=== PATIENT | male | born 1940 | race Caucasian/White ===

== ENCOUNTER → 2016-10-24 | Outpatient (CLI) | payer OTHER ==
[~2016-10-24] MED LIST: ACTOS30 MG PO; ADULT LOW DOSE81 M1 PO; ADVIL200 MG PO; ALBUTEROL SULF8.5 GM IH; ASCORBIC ACID500 M3 PO; ASPIR-LOW81 M1; ASPIR-LOW81 MG PO; ASPIRIN E.C.81 M1 PO; ATORVASTATIN CA40 MG PO; Ascorbic Acid,Ester- PO; Aspirin E.C. PO; BACTRIM,SEPT1 TABLET PO; C-10001000 MG PO; CALCIO DEL MAR500 MG; CARVEDILOL25 MG; CARVEDILOL25 MG PO; CENTRUM SILVER1 EAC3 PO; CEPHALEXIN500 MG PO; CHEMO MEDS; CILOSTAZOL50 MG PO; CLEOCIN300 MG PO; COLACE100 MG PO; COREG12.5 MG PO; COREG25 M1 PO; Cipro PO; DESYREL100 MG PO; DILAUDID2 MG PO; DRONABINOL2.5 MG PO; Deltasone PO; Desyrel PO; EFFEXOR XR150 MG; EFFEXOR XR150 MG PO; ENDOCET 5-3251 EACH PO; ESTER-C 1,0001 EACH PO; Effexor XR PO; FENOFIBRATE145 M1 PO; FEOSOL325 MG PO; FLOMAX0.4 MG PO; FLOVENT DISKUS1 DIS1 IH; FOLIC ACID1 MG PO; FOLVITE1 MG PO; GABAPENTIN300 MG PO; GEMFIBROZIL600 MG; GLUCOPHAGE1000 MG PO; GOLYTELY SOLU4000 ML PO; HYDROCODON-ACE1 EAC7 PO; HYDROCODON-ACE1 EACH PO; HYDROMORPHONE HC4 MG PO; IRON325 MG PO; JANUVIA100 MG; JANUVIA100 MG PO; K-DUR20 MEQ PO; KLOR-CON20 MEQ PO; LASIX40 MG PO; LIPITOR40 MG PO; LISINOPRIL10 MG PO; LISINOPRIL20 MG PO; LISINOPRIL5 MG PO; LOW DOSE ASPIRI81 M1 PO; LOW DOSE ASPIRI81 M2 PO; Lopid PO; MAGOX 400400 MG PO; METOPROLOL SUCC25 MG PO; Maalox, Mylanta PO; Mag-Ox PO; NEURONTIN300 MG PO; NITROSTAT0.4 MG SL; NORCO 5/3251 TABLET PO; Neurontin PO; Nitrostat,NitroQuick SL; OMEPRAZOLE40 M1 PO; Oyst-Cal D, Oscal W/ PO; PEPTO BISMOL240 ML PO; PERCOCET 5/31 TABLET PO; PLETAL50 MG PO; POTASSIUM CHLO20 ME1 PO; PREDNISONE5 MG PO; PRILOSEC40 MG PO; PROAIR HFA8.5 GM IH; PROTONIX40 MG PO; PROVENTIL HFA6.7 GM IH; Percocet 5/325,Endoc PO; Pletal PO; Protonix PO; QUESTRAN PACKET4 GM PO; QUESTRAN4 GM/PACKE PO; SINGULAIR10 MG; SINGULAIR10 MG PO; SPIRIVA1 INHALATI IH; ST. JOSEPH ASPI81 MG PO; SYMBICORT60 INHALA1 IH; SYMBICORT60 INHALAT IH; Santyl TP; THERAGRAN1 TABLET PO; TOPROL XL25 MG PO; TRAZODONE HCL50 MG PO; TRICOR145 MG PO; Theragran PO; Tricor PO; Tylenol Regular Stre PO; VENLAFAXINE HC150 M1 PO; VICODIN,LORT1 TABLET PO; VITAMIN D1000 UNIT PO; VYTORIN 10/81 TABLET PO; Vancomycin IV; Vytorin 10/80 PO; ZESTRIL20 MG PO
== END | disposition home or self-care (01) ==
LOC: OPR 07:44 → EDSTATUS 09:00 → OPR 09:00
PROC: 0FB03ZX Excision of Liver, Percutaneous Approach, Diagnostic (ICD-10-PCS; principal; 2016-10-24)
DX: R16.0 Hepatomegaly, not elsewhere classified (principal)
CPT/HCPCS: 77012; 88305; J3010

== ENCOUNTER 2016-11-23 07:52 | Day surgery (SDC) | payer OTHER ==
[~2016-11-23] VITALS: Ht 177.8 cm; Wt 52.2 kg
[2016-11-23 09:14] VITALS: BP 156/56
[2016-11-23 12:30] VITALS: BP 125/52
[2016-11-23 13:30] VITALS: BP 133/68
== END 2016-11-23 14:00 | disposition home or self-care (01) ==
LOC: SDC 07:52
PROC: 0TB68ZX Excision of Right Ureter, Via Natural or Artificial Opening Endoscopic, Diagnostic (ICD-10-PCS; principal; 2016-11-23)
PROC: 0TF68ZZ Fragmentation in Right Ureter, Via Natural or Artificial Opening Endoscopic (ICD-10-PCS; principal; 2016-11-23)
DX: N20.1 Calculus of ureter (principal); N13.39 Other hydronephrosis; C66.1 Malignant neoplasm of right ureter; J45.909 Unspecified asthma, uncomplicated; I10 Essential (primary) hypertension; Z79.82 Long term (current) use of aspirin; Z87.891 Personal history of nicotine dependence
CPT/HCPCS: 74420; 88305; 93005; C1876; J0690; J1580; J2020; J2405; J3010

== ENCOUNTER 2017-02-21 15:33 | Emergency (ER) | payer OTHER ==
[~2017-02-21] VITALS: Ht 177.8 cm; Wt 50.9 kg
[2017-02-21 16:24] LABS: EOSINOPHIL COUNT 0.1 K/uL (0-0.3); HEMATOCRIT 25.2 % (38.0-50.0); IMMATURE GRANULOCYTE (%) 0.5 % (0.0-0.7); INSTRUMENT ABS NEUTROPHIL CT 2.3 K/uL; LYMPHOCYTE COUNT 0.8 K/uL (1.0-2.8); MCH 33.3 PG (29.0-34.0); MCHC 33.3 G/DL (30.0-36.0); MEAN PLAT.VOLUME 9.8 uM^3 (9.0-12.4); MONOCYTE (%) 9.8 % (3-12); MONOCYTE COUNT 0.4 K/uL (0-0.8); NEUTROPHIL (%) 63.5 % (45-76); NEUTROPHIL COUNT 2.3 K/uL (1.8-6.4); PLATELET COUNT 89 K/uL (156-360); RBC DIS.WIDTH-CV 13.7 % (11.8-14.6); RBC DIS.WIDTH-SD 50.6 % (39-53); RED BLOOD COUNT 2.52 M/uL (4.00-5.50); WHITE BLOOD COUNT 3.7 K/uL (4.1-10.2)
[2017-02-21 16:33] LABS: CHLORIDE 113 mEq/L (99-109); POTASSIUM 4.2 mEq/L (3.7-5.4); SODIUM 141 mEq/L (136-147)
[2017-02-21 16:35] LABS: GLUCOSE 112 mg/dL (70-99)
[2017-02-21 16:37] LABS: ANION GAP 6 MEQ/L (2-14)
[2017-02-21 16:39] LABS: GFR ESTIMATE (CALCULATED) 52 mL/min/
[2017-02-21 16:40] LABS: UREA NITROGEN (BUN) 24 mg/dL (9-23)
[2017-02-21 17:39] LABS: ADD MIUA? YES; BILIRUBIN NEGATIVE; BLOOD SMALL; COLOR YELLOW ((YELLOW)); GLUCOSE (STRIP) NEGATIVE; KETONES NEGATIVE; LEUKOCYTES NEGATIVE; NITRITE NEGATIVE; PROTEIN (STRIP) NEGATIVE; SPECIFIC GRAVITY 1.015 (1.000-1.030); UROBILINOGEN 0.2 MG/DL (0.2-1.0)
[2017-02-21 17:44] LABS: BACTERIA RARE /HPF; EPITHELIAL CELLS NONE SEEN /HPF; HYALINE CASTS 0-5 /LPF; MUCUS TRACE /LPF
[2017-02-21] MEDS ORDERED: ULTRAM50 MG PO (18:50)
[2017-02-21 19:02] VITALS: BP 160/68
== END 2017-02-21 19:08 | disposition home or self-care (01) ==
LOC: EME 15:33
PROVIDERS: Physician Assistant
DX: S40.011A Contusion of right shoulder, initial encounter (principal); S00.93XA Contusion of unspecified part of head, initial encounter; W18.30XA Fall on same level, unspecified, initial encounter; Y92.000 Kitchen of unspecified non-institutional (private) residence as the place of occurrence of the external cause; J45.909 Unspecified asthma, uncomplicated; J44.9 Chronic obstructive pulmonary disease, unspecified; E11.9 Type 2 diabetes mellitus without complications; I10 Essential (primary) hypertension; Z85.828 Personal history of other malignant neoplasm of skin; Z85.038 Personal history of other malignant neoplasm of large intestine; Z79.82 Long term (current) use of aspirin; Z87.891 Personal history of nicotine dependence
CPT/HCPCS: 70450; 73030; 80048; 81003; 85025; 99281; 99284

== ENCOUNTER 2017-04-02 08:51 | Outpatient (CLI) | payer OTHER ==
[~2017-04-02] VITALS: Ht 177.8 cm; Wt 50.1 kg
[~2017-04-02 08:51] MED LIST changes: +MULTI-DAY VITA1 EACH PO; +PROAIR RESPICL90 MCG IH; +ULTRAM50 MG PO
[2017-04-02 09:56] LABS: INTER. NORMALIZED RATIO 1.3; PROTHROMBIN TIME 13.6 (9.2-11.2); PTT 29.6 (25-32)
[2017-04-02 15:45] LABS: HEMATOCRIT 24.6 % (38.0-50.0); MCH 33.5 PG (29.0-34.0); MCHC 34.1 G/DL (30.0-36.0); MEAN PLAT.VOLUME 10.6 uM^3 (9.0-12.4); PLATELET COUNT 77 K/uL (156-360); RBC DIS.WIDTH-CV 13.7 % (11.8-14.6); RBC DIS.WIDTH-SD 49.1 % (39-53); RED BLOOD COUNT 2.51 M/uL (4.00-5.50); WHITE BLOOD COUNT 6.6 K/uL (4.1-10.2)
[2017-04-02 19:03] VITALS: BP 125/55
[2017-04-02 19:44] LABS: HEMATOCRIT 22.8 % (38.0-50.0); MCH 33.2 PG (29.0-34.0); MCHC 34.2 G/DL (30.0-36.0); MEAN PLAT.VOLUME 10.6 uM^3 (9.0-12.4); PLATELET COUNT 82 K/uL (156-360); RBC DIS.WIDTH-CV 13.6 % (11.8-14.6); RBC DIS.WIDTH-SD 48.6 % (39-53); RED BLOOD COUNT 2.35 M/uL (4.00-5.50); WHITE BLOOD COUNT 5.7 K/uL (4.1-10.2)
[2017-04-02 23:30] VITALS: BP 106/54
[2017-04-03 00:48] LABS: HEMATOCRIT 21.9 % (38.0-50.0); MCH 32.4 PG (29.0-34.0); MCHC 33.3 G/DL (30.0-36.0); MCV 97.3 FL (86-99); MEAN PLAT.VOLUME 10.5 uM^3 (9.0-12.4); PLATELET COUNT 78 K/uL (156-360); RBC DIS.WIDTH-CV 13.8 % (11.8-14.6); RBC DIS.WIDTH-SD 49.1 % (39-53); RED BLOOD COUNT 2.25 M/uL (4.00-5.50); WHITE BLOOD COUNT 7.3 K/uL (4.1-10.2)
[2017-04-03 01:23] VITALS: BP 130/59
[2017-04-03 05:11] VITALS: BP 115/56
[2017-04-03 05:27] LABS: HEMATOCRIT 21.9 % (38.0-50.0); MCV 97.8 FL (86-99)
[2017-04-03 08:20] VITALS: BP 121/60
[2017-04-03 12:44] LABS: HEMATOCRIT 22.2 % (38.0-50.0); MCH 33.5 PG (29.0-34.0); MCHC 34.2 G/DL (30.0-36.0); MCV 97.8 FL (86-99); MEAN PLAT.VOLUME 10.8 uM^3 (9.0-12.4); PLATELET COUNT 91 K/uL (156-360); RBC DIS.WIDTH-CV 13.9 % (11.8-14.6); RBC DIS.WIDTH-SD 49.1 % (39-53); RED BLOOD COUNT 2.27 M/uL (4.00-5.50); WHITE BLOOD COUNT 8.1 K/uL (4.1-10.2)
[2017-04-03 13:01] VITALS: BP 127/58
[2017-04-03 16:20] VITALS: BP 136/60
== END 2017-04-03 16:19 | disposition home or self-care (01) ==
LOC: OPR 08:51 → EDSTATUS 10:00 → OPR 10:00 → 2SOUTH 16:44 → 4EAST 16:44
PROVIDERS: Internal Medicine; Physician Assistant Surgical; Radiology Diagnostic Radiology; Surgery
DX: C78.7 Secondary malignant neoplasm of liver and intrahepatic bile duct (principal); C66.9 Malignant neoplasm of unspecified ureter; C78.02 Secondary malignant neoplasm of left lung; Y83.9 Surgical procedure, unspecified as the cause of abnormal reaction of the patient, or of later complication, without mention of misadventure at the time of the procedure; K91.840 Postprocedural hemorrhage of a digestive system organ or structure following a digestive system procedure; K66.1 Hemoperitoneum; J44.9 Chronic obstructive pulmonary disease, unspecified; I12.9 Hypertensive chronic kidney disease with stage 1 through stage 4 chronic kidney disease, or unspecified chronic kidney disease; N18.9 Chronic kidney disease, unspecified; E11.40 Type 2 diabetes mellitus with diabetic neuropathy, unspecified; D50.0 Iron deficiency anemia secondary to blood loss (chronic); I73.9 Peripheral vascular disease, unspecified; E11.22 Type 2 diabetes mellitus with diabetic chronic kidney disease; I70.90 Unspecified atherosclerosis; I42.0 Dilated cardiomyopathy; Z87.891 Personal history of nicotine dependence; Z79.82 Long term (current) use of aspirin; Z85.028 Personal history of other malignant neoplasm of stomach; Z85.038 Personal history of other malignant neoplasm of large intestine
CPT/HCPCS: 74176; 77012; 85014; 85018; 85027; 85610; 85730; 86900; 86901; 86920; 88305; 88341 TC; 88342 TC; 94640 76; 99202; G0378; J3010; J7120

== ENCOUNTER 2017-06-12 12:53 | Observation (INO) | payer OTHER ==
[~2017-06-12] VITALS: Ht 177.8 cm; Wt 42.3 kg
[~2017-06-12 12:53] MED LIST changes: -PROAIR RESPICL90 MCG IH
[2017-06-12 14:47] LABS: EOSINOPHIL (%) 0.7 % (0-5); HEMATOCRIT 28.1 % (38.0-50.0); IMMATURE GRANULOCYTE (%) 0.2 % (0.0-0.7); INSTRUMENT ABS NEUTROPHIL CT 4.4 K/uL; LYMPHOCYTE COUNT 0.6 K/uL (1.0-2.8); MCH 32.1 PG (29.0-34.0); MCHC 33.8 G/DL (30.0-36.0); MCV 94.9 FL (86-99); MEAN PLAT.VOLUME 10.6 uM^3 (9.0-12.4); MONOCYTE (%) 10.4 % (3-12); MONOCYTE COUNT 0.6 K/uL (0-0.8); NEUTROPHIL (%) 78.3 % (45-76); NEUTROPHIL COUNT 4.4 K/uL (1.8-6.4); PLATELET COUNT 96 K/uL (156-360); RBC DIS.WIDTH-CV 16.3 % (11.8-14.6); RBC DIS.WIDTH-SD 57.8 % (39-53); RED BLOOD COUNT 2.96 M/uL (4.00-5.50); WHITE BLOOD COUNT 5.6 K/uL (4.1-10.2)
[2017-06-12 15:09] LABS: TROP-I INTERPRETATION NEGATIVE; TROPONIN-I 0.07 ng/mL (0.0-0.30)
[2017-06-12 15:30] LABS: CHLORIDE 106 mEq/L (99-109); POTASSIUM 4.3 mEq/L (3.7-5.4); SODIUM 137 mEq/L (136-147)
[2017-06-12 15:33] LABS: ANION GAP 6 MEQ/L (2-14)
[2017-06-12 15:34] LABS: TOTAL BILIRUBIN 2.4 mg/dL (0.0-1.0)
[2017-06-12 15:38] LABS: GLUCOSE 97 mg/dL (70-99)
[2017-06-12 15:40] LABS: ADD MIUA? YES; BILIRUBIN NEGATIVE; BLOOD LARGE; COLOR AMBER ((YELLOW)); GLUCOSE (STRIP) NEGATIVE; KETONES NEGATIVE; LEUKOCYTES NEGATIVE; NITRITE NEGATIVE; PROTEIN (STRIP) 30; SPECIFIC GRAVITY 1.016 (1.000-1.030)
[2017-06-12 15:41] LABS: ALKALINE PHOSPHATASE 98 IU/L (3-129); GFR ESTIMATE (CALCULATED) 45 mL/min/
[2017-06-12 15:42] LABS: UREA NITROGEN (BUN) 38 mg/dL (9-23)
[2017-06-12 15:45] LABS: LIPASE 14 U/L (1.0-51.0)
[2017-06-12 15:46] LABS: BACTERIA RARE /HPF; CALCIUM OXALATE CRYSTALS 1+ /HPF; EPITHELIAL CELLS RARE /HPF; MUCUS TRACE /LPF; RED BLOOD CELLS TNTC /HPF (0-5); UCUL ADDED? YES; WHITE BLOOD CELLS 20-30 /HPF (0-5)
[2017-06-12 18:11] VITALS: BP 158/60
[2017-06-12 18:52] VITALS: BP 127/60
[2017-06-13 00:10] VITALS: BP 123/60
[2017-06-13 04:08] VITALS: BP 117/56
[2017-06-13 05:55] LABS: HEMATOCRIT 26.6 % (38.0-50.0); MCH 33.1 PG (29.0-34.0); MCHC 34.2 G/DL (30.0-36.0); MCV 96.7 FL (86-99); MEAN PLAT.VOLUME 11.1 uM^3 (9.0-12.4); PLATELET COUNT 102 K/uL (156-360); RBC DIS.WIDTH-CV 16.6 % (11.8-14.6); RBC DIS.WIDTH-SD 58.4 % (39-53); RED BLOOD COUNT 2.75 M/uL (4.00-5.50); WHITE BLOOD COUNT 7.6 K/uL (4.1-10.2)
[2017-06-13 06:24] LABS: ALKALINE PHOSPHATASE 93 IU/L (3-129); ANION GAP 7 MEQ/L (2-14); CHLORIDE 109 MEQ/L (99-109); GFR ESTIMATE (CALCULATED) 45 mL/min/; GLUCOSE 90 mg/dL (70-99); POTASSIUM 4.2 MEQ/L (3.7-5.4); SAMPLE HEMOLYSIS CHECK 0; SAMPLE ICTERIC CHECK 0; SAMPLE LIPEMIA CHECK 0; SODIUM 139 MEQ/L (136-147); TOTAL BILIRUBIN 2.3 MG/DL (0.0-1.0); UREA NITROGEN (BUN) 38 mg/dL (9-23)
[2017-06-13 07:31] VITALS: BP 128/65
[2017-06-13] MEDS ORDERED: ATORVASTATIN CA40 MG PO (10:48)
[2017-06-13] MEDS ORDERED: OMEPRAZOLE40 M1 PO (10:50)
[2017-06-13] MEDS ORDERED: SPIRIVA18 MCG IH (10:50)
[2017-06-13] MEDS ORDERED: TRAZODONE HCL50 MG PO (10:51)
[2017-06-13 11:56] VITALS: BP 139/61
== END 2017-06-13 14:34 | disposition home or self-care (01) ==
LOC: EME 12:53 → EDBD 12:53 → EME 12:53 → 5WEST 16:30 → EDOF 16:30 → ENRESERV 16:50 → CANRESERV 16:50 → ENRESERV 16:54 → 5WEST 18:14
PROVIDERS: Emergency Medicine; Hospitalist
DX: R53.1 Weakness (principal); W19.XXXA Unspecified fall, initial encounter; R45.1 Restlessness and agitation; Z68.1 Body mass index [BMI] 19.9 or less, adult; C67.7 Malignant neoplasm of urachus; C78.7 Secondary malignant neoplasm of liver and intrahepatic bile duct; Z85.038 Personal history of other malignant neoplasm of large intestine; Z85.028 Personal history of other malignant neoplasm of stomach; N18.9 Chronic kidney disease, unspecified; Z90.49 Acquired absence of other specified parts of digestive tract; J44.9 Chronic obstructive pulmonary disease, unspecified; F32.9 Major depressive disorder, single episode, unspecified; Z87.891 Personal history of nicotine dependence; Z66 Do not resuscitate
CPT/HCPCS: 70450; 71010; 80053; 81003; 83690; 84484; 85025; 85027; 87086; 93005; 94640; 99202; 99281; 99285; G0378; G8978 GP CJ; G8979 GP CI; G8980 CJ; G8987 GO CJ; G8988 CI; G8989 CJ; J7030; S0028